=== PATIENT | male | born 1945 | race African-American/Black ===

== ENCOUNTER 2017-01-24 18:14 | Emergency (ER) | payer OTHER ==
[~2017-01-24] VITALS: Ht 167.6 cm; Wt 99.8 kg
[2017-01-24] MEDS ORDERED: cloNIDine HCL 0.1 MG TAB PO ONE (20:30)
[2017-01-24] MEDS ORDERED: KETOROLAC TROMETH 60MG/2ML VIAL IM ONE (20:45)
[2017-01-24] MEDS ORDERED: methylPREDNISolone SOD SUCC 125 MG/2 ML VL IM ONE (20:45)
[2017-01-24 21:41] VITALS: BP 140/96
== END 2017-01-24 21:42 | disposition home or self-care (01) ==
LOC: ER 18:14
DX: M54.16 Radiculopathy, lumbar region (principal); I10 Essential (primary) hypertension; G89.29 Other chronic pain; M54.9 Dorsalgia, unspecified; F17.210 Nicotine dependence, cigarettes, uncomplicated; Z91.14 Patient's other noncompliance with medication regimen
CPT/HCPCS: 72131; 82962; 96372; 99284; J1885; J2930

== ENCOUNTER 2017-04-28 16:05 | Inpatient (IN) | payer OTHER ==
[~2017-04-28] VITALS: Ht 167.6 cm; Wt 92.0 kg
[2017-04-28] MEDS ORDERED: LABETALOL HCL 5 MG/ML ML 20ML VIAL IV ONE ×2 (16:45→18:00)
[2017-04-28 16:58] LABS: Partial Thromboplastin Time 27.9 sec (22.64-33.71); Prothrombin Time 10.9 sec (9.37-12.3)
[2017-04-28 17:03] LABS: Alanine Aminotransferase 12 U/L (16-61); Albumin 3.7 g/dL (3.4-5.0); Anion Gap 6 (5-15); Aspartate Aminotransferase 12 U/L (15-37); BUN/Creatinine Ratio 6.3; Blood Urea Nitrogen 8 mg/dL (7-18); Calcium 8.5 mg/dL (8.5-10.1); Carbon Dioxide 27 mmol/L (21-32); Chloride 106 mmol/L (98-107); GFR African American 72 mL/min; GFR Non-African American 60 mL/min; Glucose 102 mg/dL (74-106); Magnesium 1.9 mg/dL (1.6-2.6); Sodium 139 mmol/L (136-145)
[2017-04-28 17:07] LABS: Alkaline Phosphatase 123 U/L (45-117); Bilirubin, Total 0.4 mg/dL (0.2-1.0); Total Protein 8.1 g/dL (6.4-8.2)
[2017-04-28 17:10] LABS: Basophils # (auto) 0.1 uL; Basophils % (auto) 0.4 % (0.0-2.0); Eosinophils # (auto) 0.1 uL; Eosinophils % (auto) 0.9 % (0.0-7.0); Hematocrit 50.6 % (41.0-53.0); Hemoglobin 17.6 g/dL (13.5-17.5); Lymphocytes # (auto) 4.2 uL; Lymphocytes % (auto) 31.8 % (10.0-50.0); Mean Corpuscular Hgb Conc. 34.8 g/dL (32.0-36.0); Mean Corpuscular Volume 89.1 fL (80.0-100.0); Monocytes # (auto) 0.5 uL; Monocytes % (auto) 3.5 % (0.0-12.0); Neutrophils # (auto) 8.3 uL; Neutrophils % (auto) 63.4 % (37.0-80.0); Nucleated Red Blood Cells % 0.2 %; Platelet Count (auto) 261 10^3/uL (140-450); Red Blood Cells 5.68 10^6/uL (4.5-5.90); Red Cell Distribution Width 14.2 % (11.8-14.3); White Blood Cell 13.1 10^3/uL (4.4-10.8)
[2017-04-28] MEDS: SODIUM CHLORIDE 0.9% 1,000 ML IV SCH (19:22)
[2017-04-28] MEDS ORDERED: NITROGLYCERIN 0.4 MG SL TAB SL PRN (19:30)
[2017-04-28] MEDS ORDERED: HYDROcodone-ACET 5/325MG TAB PO PRN (19:30)
[2017-04-28] MEDS ORDERED: LACTULOSE 20Gm/30ML SOLN PO PRN (19:30)
[2017-04-28] MEDS ORDERED: DEXTROSE (50%) 50ML SYRG IV PRN (19:30)
[2017-04-28] MEDS ORDERED: MORPHINE SULFATE 4 MG/ML SYR/VIAL IV PRN ×2 (19:30)
[2017-04-28] MEDS ORDERED: ACETAMINOPHEN 500 MG TAB PO PRN (19:30)
[2017-04-28] MEDS ORDERED: LORazepam 0.5 MG TAB PO PRN (19:30)
[2017-04-28] MEDS ORDERED: ASPirin 81 mg TAB PO ONE ×2 (19:30→19:45)
[2017-04-28] MEDS ORDERED: PROMETHAZINE HCL 25 MG/ML 1ML IV PRN (19:30)
[2017-04-28] MEDS ORDERED: TEMAZEPAM 15 MG CAP PO PRN (19:30)
[2017-04-28] MEDS ORDERED: LABETALOL HCL 5 MG/ML ML 20ML VIAL IV PRN (19:30)
[2017-04-28] MEDS ORDERED: LORazepam 2MG/ML-1ML VIAL IV PRN (20:15)
[2017-04-28 21:05] LABS: Cholesterol 256 mg/dL (< 200); HDL Cholesterol 39 mg/dL (40-59); LDL Cholesterol 182 mg/dL (< 100); Triglycerides 186 mg/dL (< 150)
[2017-04-28] MEDS: ENOXAPARIN SOD 40 MG/0.4 ML SYRINGE SC SCH (21:13)
[2017-04-28] MEDS: ATORVASTATIN 20 MG TAB PO SCH (21:14)
[2017-04-28] MEDS: ACCU-CHEK COMFORT CURVE STRIP VI SCH (21:43)
[2017-04-28] MEDS: InsuLIN REG 1unit/0.01ml Soln (100units/ml) SC SCH (21:46)
[2017-04-28 22:20] VITALS: BP 161/99
[2017-04-29 04:42] VITALS: BP 124/79
[2017-04-29 05:47] LABS: Basophils # (auto) 0 uL; Basophils % (auto) 0.3 % (0.0-2.0); Eosinophils # (auto) 0.2 uL; Eosinophils % (auto) 1.5 % (0.0-7.0); Hematocrit 45.4 % (41.0-53.0); Hemoglobin 16.2 g/dL (13.5-17.5); Lymphocytes # (auto) 3.3 uL; Lymphocytes % (auto) 31.1 % (10.0-50.0); Mean Corpuscular Hemoglobin 31.5 pg (28.0-32.0); Mean Corpuscular Hgb Conc. 35.6 g/dL (32.0-36.0); Mean Corpuscular Volume 88.5 fL (80.0-100.0); Monocytes # (auto) 0.5 uL; Monocytes % (auto) 4.3 % (0.0-12.0); Neutrophils # (auto) 6.7 uL; Neutrophils % (auto) 62.8 % (37.0-80.0); Nucleated Red Blood Cells % 0.2 %; Platelet Count (auto) 211 10^3/uL (140-450); Red Blood Cells 5.13 10^6/uL (4.5-5.90); White Blood Cell 10.6 10^3/uL (4.4-10.8)
[2017-04-29 06:07] LABS: Cholesterol 237 mg/dL (< 200); HDL Cholesterol 34 mg/dL (40-59); LDL Cholesterol 163 mg/dL (< 100); Triglycerides 238 mg/dL (< 150)
[2017-04-29] MEDS: InsuLIN REG 1unit/0.01ml Soln (100units/ml) SC SCH ×4 (06:52→21:23)
[2017-04-29] MEDS: ACCU-CHEK COMFORT CURVE STRIP VI SCH ×4 (06:53→21:16)
[2017-04-29 08:30] VITALS: BP 148/85
[2017-04-29] MEDS: SODIUM CHLORIDE 0.9% 1,000 ML IV SCH (09:26)
[2017-04-29] MEDS: PANTOPRAZOLE 40 MG TAB PO SCH (10:11)
[2017-04-29] MEDS: ASPirin 81 mg TAB PO SCH (10:12)
[2017-04-29] MEDS ORDERED: LISINOPRIL 20 MG TAB PO ONE (12:45)
[2017-04-29 13:00] VITALS: BP 143/76
[2017-04-29 16:58] VITALS: BP 182/91
[2017-04-29] MEDS ORDERED: ASPI-231 PO (18:55)
[2017-04-29] MEDS ORDERED: LISI40TA PO (18:55)
[2017-04-29] MEDS ORDERED: ATOR1TAB PO (18:55)
[2017-04-29] MEDS ORDERED: HYDR25TA35 PO (18:55)
[2017-04-29] MEDS ORDERED: AMLO5TAB2 PO (18:55)
[2017-04-29] MEDS ORDERED: BACL10TA PO (18:55)
[2017-04-29] MEDS ORDERED: CLOP75TA41 PO (18:55)
[2017-04-29] MEDS ORDERED: METH750T3 PO (18:55)
[2017-04-29] MEDS: ENOXAPARIN SOD 40 MG/0.4 ML SYRINGE SC SCH (21:15)
[2017-04-29] MEDS: ATORVASTATIN 20 MG TAB PO SCH (21:16)
[2017-04-29 22:00] VITALS: BP 127/77
[2017-04-30 05:05] VITALS: BP 137/79
[2017-04-30 05:43] LABS: BUN/Creatinine Ratio 10.3; Calcium 8.4 mg/dL (8.5-10.1); Potassium 3.6 mmol/L (3.5-5.1)
[2017-04-30] MEDS: ACCU-CHEK COMFORT CURVE STRIP VI SCH ×4 (06:24→21:41)
[2017-04-30] MEDS: InsuLIN REG 1unit/0.01ml Soln (100units/ml) SC SCH ×4 (06:41→22:00)
[2017-04-30 07:56] VITALS: BP 153/92
[2017-04-30] MEDS ORDERED: LISINOPRIL 20 MG TAB PO SCH (10:00)
[2017-04-30] MEDS: PANTOPRAZOLE 40 MG TAB PO SCH (10:17)
[2017-04-30] MEDS: ASPirin 81 mg TAB PO SCH (10:17)
[2017-04-30 12:09] LABS: Urine Bacteria NONE SEEN /hpf (None Seen); Urine Blood Negative /uL (Negative); Urine Mucus FEW (None Seen); Urine Specific Gravity 1.015 (1.001-1.035); Urine WBC 2 /hpf (0 - 3)
[2017-04-30 12:13] VITALS: BP 134/73
[2017-04-30 16:44] VITALS: BP 137/71
[2017-04-30] MEDS: ENOXAPARIN SOD 40 MG/0.4 ML SYRINGE SC SCH (21:44)
[2017-04-30] MEDS: hydrALAZINE HCL 25 MG TAB PO SCH (21:44)
[2017-04-30] MEDS: ATORVASTATIN 20 MG TAB PO SCH (21:45)
[2017-04-30 21:54] VITALS: BP 150/91
[2017-05-01 05:00] VITALS: BP 154/95
[2017-05-01] MEDS: ACCU-CHEK COMFORT CURVE STRIP VI SCH ×2 (06:05→12:27)
[2017-05-01] MEDS: hydrALAZINE HCL 25 MG TAB PO SCH ×2 (06:05→14:00)
[2017-05-01] MEDS: InsuLIN REG 1unit/0.01ml Soln (100units/ml) SC SCH ×2 (06:11→12:27)
[2017-05-01 09:31] LABS: Folate (Folic Acid) 13.24 ng/mL (5.38-24)
[2017-05-01 09:38] VITALS: BP 129/83
[2017-05-01] MEDS ORDERED: LISINOPRIL 20 MG TAB PO SCH (10:00)
[2017-05-01] MEDS ORDERED: CLOPIDOGREL BISULFATE 75 MG TAB PO SCH (10:00)
[2017-05-01] MEDS ORDERED: amLODIPine BESYLATE 5 MG TAB PO SCH (10:00)
[2017-05-01] MEDS: PANTOPRAZOLE 40 MG TAB PO SCH (10:02)
[2017-05-01] MEDS: ASPirin 81 mg TAB PO SCH (10:04)
[2017-05-01 12:47] VITALS: BP 128/63
[2017-05-01 14:47] VITALS: BP 129/83
== END 2017-05-01 16:25 | disposition home or self-care (01) | DRG 64 ==
LOC: ER 16:07 → TELE 16:08 → TELE-CENTR 22:16
PROVIDERS: ADMIT Internal Medicine; ATTEND Internal Medicine Geriatric Medicine
DX: I63.9 Cerebral infarction, unspecified (principal); R65.11 Systemic inflammatory response syndrome (SIRS) of non-infectious origin with acute organ dysfunction; E11.8 Type 2 diabetes mellitus with unspecified complications; I10 Essential (primary) hypertension; I25.10 Atherosclerotic heart disease of native coronary artery without angina pectoris; F17.210 Nicotine dependence, cigarettes, uncomplicated; F41.9 Anxiety disorder, unspecified; Z95.1 Presence of aortocoronary bypass graft
CPT/HCPCS: 36415; 70450; 70551; 71045; 80048; 80053; 80061; 81001; 82550; 82607; 82746; 82962; 83036; 83735; 83880; 84443; 84484; 85025; 85610; 85652; 85730; 93005; 93306; 93886; 94761; 96372; 96374; J1815

== ENCOUNTER 2019-08-22 08:12 | Emergency (ER) | payer OTHER ==
[~2019-08-22] VITALS: Ht 167.6 cm; Wt 123.4 kg
[~2019-08-22 08:12] MED LIST: AMLO5TAB15 PO; ASPI-231 PO; ATOR1TAB PO; BACL10TA PO; CLOP75TA41 PO; HYDR-4296 PO; LISI40TA PO; METH750T3 PO
[2019-08-22 10:02] LABS: Basophils # (auto) 0.1 10 ^3/uL (0-0.2); Basophils % (auto) 0.7 % (0.0-2.0); Eosinophils # (auto) 0.1 10 ^3/uL (0-0.8); Eosinophils % (auto) 0.9 % (0.0-7.0); Hematocrit 49.9 % (41.0-53.0); Hemoglobin 17.2 g/dL (13.5-17.5); Lymphocytes # (auto) 2.5 10 ^3/uL (0.4-5.4); Lymphocytes % (auto) 25.8 % (10.0-50.0); Mean Corpuscular Hemoglobin 30.3 pg (28.0-32.0); Mean Corpuscular Hgb Conc. 34.5 g/dL (32.0-36.0); Mean Corpuscular Volume 87.8 fL (80.0-100.0); Monocytes # (auto) 0.4 10 ^3/uL (0-1.3); Monocytes % (auto) 4.6 % (0.0-12.0); Neutrophils # (auto) 6.6 10 ^3/uL (1.6-8.6); Nucleated Red Blood Cells % 0.3 %; Platelet Count (auto) 211 10^3/uL (140-450); Red Blood Cells 5.68 10^6/uL (4.5-5.90); Red Cell Distribution Width 14.2 % (11.8-14.3); White Blood Cell 9.7 10^3/uL (4.4-10.8)
[2019-08-22 10:23] LABS: Albumin 3.7 g/dL (3.4-5.0); Anion Gap 7 (5-15); Blood Urea Nitrogen 9 mg/dL (7-18); Calcium 8.9 mg/dL (8.5-10.1); Carbon Dioxide 23 mmol/L (21-32); Chloride 110 mmol/L (98-107); Glucose 85 mg/dL (74-106); Potassium 3.9 mmol/L (3.5-5.1); Sodium 140 mmol/L (136-145)
[2019-08-22 10:35] LABS: Alanine Aminotransferase 11 U/L (16-61); Alkaline Phosphatase 87 U/L (45-117); Aspartate Aminotransferase 10 U/L (15-37); BUN/Creatinine Ratio 7.6; Bilirubin, Total 0.7 mg/dL (0.2-1.0); GFR African American 78 mL/min; GFR Non-African American 64 mL/min; Total Protein 7.5 g/dL (6.4-8.2)
[2019-08-22] MEDS ORDERED: cloNIDine HCL 0.1 MG TAB PO ONE ×2 (12:30→13:45)
[2019-08-22 13:45] VITALS: BP 186/96
== END 2019-08-22 16:26 | disposition home or self-care (01) ==
LOC: ER 08:12
DX: I10 Essential (primary) hypertension (principal); F41.9 Anxiety disorder, unspecified; E11.9 Type 2 diabetes mellitus without complications; I25.2 Old myocardial infarction; F17.210 Nicotine dependence, cigarettes, uncomplicated
CPT/HCPCS: 36415; 80053; 84484; 85025; 93005